=== PATIENT | female | born 1995 | race Caucasian/White ===

== ENCOUNTER 2017-05-02 09:16 | Emergency (ER) | payer SELFPAY ==
[~2017-05-02] VITALS: Ht 154.9 cm; Wt 45.0 kg
[~2017-05-02 09:16] MED LIST: POLY10O EACH EYE
[2017-05-02 09:18] VITALS: BP 115/55; PULSE 73; RESP 16; TEMP 98.2; O2SAT 98
[2017-05-02] MEDS ORDERED: POLY10O RIGHT EYE (09:28)
--- NOTE | 2017-05-02 09:29 | PD ---
HPI Chief Complaint: Eye Problems/Injury Time Seen by Provider: 09:25 Travel History International Travel<30 days: No Contact w/Intl Traveler<30days: No Traveled to known affect area: No History of Present Illness HPI 22-year-old female presents to the emergency Department with complaint of drainage, redness, itching to her right eye that started last night. Woke up with her eye crusted shut this morning. Denies change of vision. Denies fever , vomiting. Denies known foreign body, trauma to the eye. Denies eye pain. Denies photophobia. Has not taken any medications or tried any treatments to alleviate her symptoms. Needs a work release note to go back to work. Allergies Patrick. Has no other medical complaints. No other modifying factors or associated signs and symptoms. PFSH Past Medical History Cardiovascular Problems: Yes (MVP) Diminished Hearing: No GERD: Yes Reproductive: Yes (OVARIAN CYST) Immunizations Current: Yes ?: Not : 0 Social History Alcohol Use: No Tobacco Use: No Substance Use: No Allergies-Medications (Allergen,Severity, Reaction): Coded Allergies: Patrick (Verified Allergy, Severe, Anaphylaxis, 05/02/17) Reported Meds & Prescriptions Reported Meds & Active Scripts Active Polytrim Opth Drops (Polymyxin/Trimethoprim Sulfate) 10,000-0.1 Unit/Ml-% Soln 2 Drop RIGHT EYE Q6HR 7 Days Review of Systems Except as stated in HPI: all other systems reviewed are Neg Physical Exam Narrative GENERAL: Well-nourished, well-developed female patient, in no acute distress SKIN: Warm and dry. HEAD: Atraumatic. Normocephalic. EYES: Pupils equal and round at 3 mm with brisk reaction. PERRLA. EOMI. right lid eversion with no foreign body noted. Right eye with mild scleral erythema and mild lid edema. No orbital tenderness, erythema or cellulitis. Right eye without photophobia. No consensual photophobia. No scleral icterus. Crusted drainage noted to upper and lower eyelashes and inner canthus of eye. ENT: Mucosa pink and moist. Airway patent. NECK: Trachea midline. CARDIOVASCULAR: Regular rate. RESPIRATORY: No accessory muscle use. GASTROINTESTINAL: Flat. NEUROLOGICAL: Awake and alert. Oriented 3. No obvious cranial nerve deficits. Motor grossly within normal limits. Normal speech. PSYCHIATRIC: Appropriate mood and affect; insight and judgment normal. Data Data Last Documented VS Vital Signs Date Time Temp Pulse Resp B/P Pulse Ox O2 Delivery O2 Flow Rate FiO2 05/02/17 09:18 98.2 73 16 115/55 98 MDM Medical Decision Making Medical Screen Exam Complete: Yes Emergency Medical Condition: Yes Medical Record Reviewed: Yes Differential Diagnosis Bacterial conjunctivitis, allergic conjunctivitis, less likely foreign body or corneal abrasion Narrative Course 22-year-old female physical examination consistent with conjunctivitis of the right eye. Patient is afebrile and nontoxic-appearing. Polytrim eyedrops prescribed for home. Work release provided. Patient verbalizes understanding and agreement with treatment plan. Patient is medically cleared and stable for discharge. Discussed reasons to return to the emergency department. Instructed patient to follow up with primary care provider. Patient agrees with treatment plan. The patients vital signs are stable and the patient is stable for outpatient follow-up and treatment. Patient discharged home, stable and in no acute distress. Diagnosis Primary Impression: Conjunctivitis Qualified Code: H10.9 - Conjunctivitis of right eye, unspecified conjunctivitis type Referrals: Primary Care Physician Patient Instructions: Conjunctivitis (ED), General Instructions Departure Forms: Tests/Procedures, Work Release Enter return to work date: May 03, 2017 Additional Instructions: Conjunctivitis is contagious Use antibiotic eye drops as prescribed Apply warm or cool compresses to both eyes for a few minutes several times daily to minimize irritation Avoid triggers, such as allergens, that may irritate your eyes Wash your hands frequently Do not share washcloths, towels, pillows, or any other material that has touched your eyes with any other household members Follow-up with your primary care provider Follow-up with ophthalmology as needed Return to the emergency department immediately with worsening of symptoms Med/Other Pt SpecificInfo: Prescription(s) given Scripts Polymyxin B-Trimethoprim Opth Drops (Polytrim Opth Drops)10,000-0.1 Unit/Ml-% Soln2 Drop RIGHT EYE Q6HR 7 Days Ref 0 Prov:Robyn Shipman 05/02/17 Disposition: 01 DISCHARGE HOME Condition: Stable Robyn Shipman May 02, 2017 09:29
== END 2017-05-02 09:30 | disposition home or self-care (01) ==
LOC: NEPK 09:16
DX: H10.9 Unspecified conjunctivitis (principal); Z86.79 Personal history of other diseases of the circulatory system; Z87.19 Personal history of other diseases of the digestive system; Z87.42 Personal history of other diseases of the female genital tract
CPT/HCPCS: 99283

== ENCOUNTER 2017-08-13 12:26 | Emergency (ER) | payer SELFPAY ==
[~2017-08-13 12:26] MED LIST changes: -POLY10O EACH EYE; +POLY10O RIGHT EYE
[2017-08-13 12:27] VITALS: BP 116/71; PULSE 81; RESP 16; TEMP 98.7; O2SAT 98
--- NOTE | 2017-08-13 13:28 | PD ---
HPI Chief Complaint: GI Complaint Time Seen by Provider: 13:10 Travel History International Travel<30 days: No Contact w/Intl Traveler<30days: No Traveled to known affect area: No History of Present Illness HPI 22 YO female presents to the ED for evaluation of "a few days" history of sharp , cramping, 8/10 lower quadrant abdominal pain. Patient states this pain is similar to pain she is experiencing due to ovarian cysts. She endorses nausea when the pain is "the most intense." She denies vomiting, lack of appetite, changes in bowel habits, melena, hematochezia, dysuria, urinary urgency, vaginal discharge or odor. She endorses unprotected sex with the single male partner. LMP 07/18/17, lasting 4 days, described as "normal flow." She denies risk of . Last pelvic exam "about a year ago." PFSH Past Medical History Cardiovascular Problems: Yes (MVP) Diminished Hearing: No GERD: Yes Reproductive: Yes (OVARIAN CYST) Immunizations Current: Yes : 0 Social History Alcohol Use: Yes Tobacco Use: No Substance Use: No Allergies-Medications (Allergen,Severity, Reaction): Coded Allergies: orange (Unverified Allergy, Severe, Anaphylaxis, 06/27/17) Reported Meds & Prescriptions Reported Meds & Active Scripts Active Metronidazole 500 Mg Tab 500 Mg PO BID 14 Days Doxycycline Hyclate 100 Mg Cap 100 Mg PO BID Polytrim Opth Drops (Polymyxin/Trimethoprim Sulfate) 10,000-0.1 Unit/Ml-% Soln 2 Drop RIGHT EYE Q6HR 7 Days Review of Systems Except as stated in HPI: all other systems reviewed are Neg Physical Exam Narrative GENERAL: Well-nourished, well-developed petite white female in no acute distress. SKIN: Focused skin assessment warm/dry. HEAD: Normocephalic. EYES: No scleral icterus. No injection or drainage. NECK: Supple, trachea midline. No JVD or lymphadenopathy. CARDIOVASCULAR: Regular rate and rhythm without murmurs, gallops, or rubs. RESPIRATORY: Breath sounds equal bilaterally. No accessory muscle use. GASTROINTESTINAL: Abdomen soft, nondistended. Mild bilateral lower quadrant and suprapubic tenderness, right greater than left. Active bowel sounds. GENITOURINARY: Normal external genitalia without lesions or erythema. Vaginal vault without blood or drainage. Cervical os was closed scant, pale jansen drainage. + cervical motion tenderness. Uterus tender and nonenlarged. Bilateral adnexa mildly without masses. MUSCULOSKELETAL: No cyanosis, or edema. BACK: Nontender without obvious deformity. No CVA tenderness. Data Data Last Documented VS Vital Signs Date Time Temp Pulse Resp B/P (MAP) Pulse Ox O2 Delivery O2 Flow Rate FiO2 08/13/17 13:01 16 08/13/17 12:27 98.7 81 116/71 (86) 98 Orders Orders Urinalysis - C+S If Indicated (08/13/17 13:09) Ed Urine Pregnancytest Poc (08/13/17 13:09) Gc And Chlamydia Pcr (08/13/17 13:35) Wet Prep Profile (08/13/17 13:35) Us Pelvis Comp W Doppler (08/13/17 13:55) Ceftriaxone Inj (Rocephin Inj) (08/13/17 15:30) Lidocaine 1% Inj (50 Ml) (Xylocaine 1% I (08/13/17 15:30) Labs Laboratory Tests Test 08/13/17 13:50 Urine Color LIGHT-YELLOW Urine Turbidity CLEAR Urine pH 6.5 Urine Specific [place] 1.017 Urine Protein NEG mg/dL Urine Glucose (UA) NEG mg/dL Urine Ketones NEG mg/dL Urine Occult Blood NEG Urine Nitrite NEG Urine Bilirubin NEG Urine Urobilinogen LESS THAN 2.0 MG/DL Urine Leukocyte Esterase NEG Urine RBC 2 /hpf Urine WBC 1 /hpf Urine Squamous Epithelial Cells 2 /hpf Urine Mucus FEW /lpf Microscopic Urinalysis Comment CULT NOT INDICATED Clue Cells (Wet Prep) NONE SEEN Vaginal Trichomonas (Wet Prep) NONE SEEN Vaginal Yeast (Wet Prep) NONE SEEN MDM Medical Decision Making Medical Screen Exam Complete: Yes Emergency Medical Condition: Yes Differential Diagnosis UTI versus versus ovarian torsion versus STI versus PID versus other Narrative Course 22 YO female presents to the ED for evaluation of "a few days" history of sharp , cramping, 8/10 lower quadrant abdominal pain. She endorses nausea when the pain is "the most intense." She denies vomiting, lack of appetite, changes in bowel habits, melena, hematochezia, dysuria, urinary urgency, vaginal discharge or odor. She endorses unprotected sex with the single male partner. LMP 07/18/17 , lasting 4 days, described as "normal flow." She denies risk of . Last pelvic exam "about a year ago." Vitals reviewed. Physical exam reveals a petite white female in no acute distress. There is some mild tenderness in the bilateral lower quadrants. Pelvic exam reveals positive cervical motion tenderness as well as bilateral adnexal tenderness to palpation. Urine test negative. No culture indicated of the UA. Wet prep negative. GC and chlamydia pending. Ultrasound reveals normal examination except for complex collection posterior to the uterus. Could be complicated free fluid or possibly related to an old hemorrhage per radiology read. I discussed the possibility of PID with the patient. I suggested that we treat, she is agreeable. Patient was administered 250 mg Rocephin in the ED and prescribed doxycycline and Flagyl 14 days. She is instructed to abstain from sex until treatment is complete, treat all sexual partners, follow up with the [facility] or the health department. I stressed the importance of finishing the medication as prescribed. She is provided with a copy of her ultrasound results and information sheet for the [facility]. She indicated understanding of the instructions and is agreeable with the care plan. She is stable and discharged home. Diagnosis Primary Impression: Pelvic inflammatory disease Referrals: [facility] [employer] [facility]. Patient Instructions: General Instructions, Pelvic Inflammatory Disease (ED) Additional Instructions: Rest, hydrate. Take all antibiotics as they are prescribed, even if your symptoms resolve. Abstain from sexual activity until antibiotics are completed and you have been seen by the [facility]. Follow-up with the bike designer, [facility] or primary care at the [facility] as discussed. Return to the ED for any emergent or emergent medical condition. Med/Other Pt SpecificInfo: Prescription(s) given Scripts Metronidazole (Metronidazole) 500 Mg Tab 500 MG PO BID for Infection for 14 Days, #28 TAB 0 Refills Prov: Orlando Garcia MD 08/13/17 Doxycycline Hyclate (Doxycycline Hyclate) 100 Mg Cap 100 MG PO BID for Infection, #28 CAP 0 Refills Prov: Orlando Garcia MD 08/13/17 Disposition: 01 DISCHARGE HOME Condition: Stable Janet Arellano Aug 13, 2017 13:28
[2017-08-13 14:20] LABS: BLOOD, URINE NEG (NEG); COMMENT (UR) CULT NOT INDICATED; CULTURE IF INDICATED CULT NOT INDICATED; GLUCOSE,URINE NEG (NEG); KETONE, URINE NEG (NEG); MUCUS URINE FEW /lpf (OCC); NITRITE,URINE NEG (NEG); PH, URINE 6.5 (5.0-8.5); SQUAMOUS EPITHELIAL CELL URINE 2 /hpf (0-5); URINE COLOR LIGHT-YELLOW (YELLW/STRAW)
[2017-08-13] MEDS ORDERED: DOXY100C PO (15:11)
[2017-08-13] MEDS ORDERED: METR500T10 PO (15:11)
--- NOTE | 2017-08-13 15:15 | RADRPT ---
EXAM DATE/TIME: 08/13/2017 14:23 [place] COMPARISON: No previous studies available for comparison. INDICATIONS : Pelvic pain. MEDICAL HISTORY : Gastroesophageal reflux disease. Cardiac disorders. Ovarian cysts. SURGICAL HISTORY : None. ENCOUNTER: Initial ACUITY: 1 day PAIN SCORE: 8/10 LOCATION: Bilateral pelvis MEASUREMENTS: UTERUS: 8.5 x 5.0 x 3.3 cm ENDOMETRIAL STRIPE: 7 mm RIGHT OVARY: 2.8 x 2.6 x 1.7 cm LEFT OVARY: 2.5 x 1.6 x 2.0 cm FINDINGS: UTERUS: The myometrium has homogeneous echotexture without mass.Posterior to the uterus is a complex collecti on measuring 4.2 x 4.3 x 4.3 cm RIGHT OVARY: Ovary contains no mass or significant cystic lesion. LEFT OVARY: Ovary contains no mass or significant cystic lesion. MISCELLANEOUS: No free fluid. CONCLUSION: Normal examination except for complex collection posterior to the uterus. Could be complicated free f luid or possibly related to an old hemorrhage. Jean-Claude Gibbs MD on August 13, 2017 at 15:11 Board Certified Radiologist. This report was verified electronically.
[2017-08-13] MEDS ORDERED: cefTRIAXone 250 MG VIAL IM ONE (15:30)
[2017-08-13] MEDS ORDERED: LIDOCAINE HCL 1% 50 ML VIAL IM ONE (15:30)
[2017-08-13 16:07] LABS: CHLAMYDIA PCR NOT DETECTED (NOT DETECT); NEISSERIA PCR NOT DETECTED (NOT DETECT)
== END 2017-08-13 15:59 | disposition home or self-care (01) ==
LOC: NEPD 12:26
DX: N73.9 Female pelvic inflammatory disease, unspecified (principal)
CPT/HCPCS: 76856; 81001; 84703; 87210; 87491; 87591; 93975; 96372; 99284; J0696